=== PATIENT | female | born 1990 | race Caucasian/White ===

== ENCOUNTER 2019-03-12 18:59 | Observation (INO) | payer OTHER, SELFPAY ==
[2019-03-12 19:06] VITALS: BP 139/97; PULSE 103; RESP 22; TEMP 36.3; O2SAT 100
--- NOTE | 2019-03-12 19:23 | ED_ITS ---
HPI - Abdominal Pain General Chief Complaint: Abdominal Pain Stated Complaint: right upper quadrant abdominal pain,thinks [place] Time Seen by Provider: 03/12/19 19:18 Source: patient Mode of arrival: ambulatory Limitations: no limitations History of Present Illness HPI narrative: Patient is an otherwise healthy 29-year-old female here for evaluation of right upper quadrant abdominal pain. Patient states that it started approximately 4-1/2 hours ago after she discussed than eating. She has never had any gallbladder issues in the past however has had pain like this in the past. Has had loose stools today. Has had dark urine today. Has vomited multiple times prior to coming here to the emergency department. Never had a kidney stone before. Related Data Home Medications Medication Instructions Recorded Confirmed No Known Home Medications 03/12/19 03/12/19 Allergies Allergy/AdvReac Type Severity Reaction Status Date / Time Penicillins Allergy Intermediate Hives Verified 03/12/19 19:06 Review of Systems Constitutional Denies fever(s) Cardiovascular Denies chest pain and Denies dyspnea Respiratory Denies dyspnea Gastrointestinal Gastrointestinal: Reports abdominal pain, Reports diarrhea, Reports nausea and Reports vomiting Genitourinary Comments: Dark colored urine Musculoskeletal Denies myalgias and Denies arthralgias Integumentary/Breasts Denies rash Neurologic Denies behavioral changes Psychiatric Denies behavioral changes Hematologic/Lymphatic Denies easy bleeding and Denies easy bruising [facility] Medical History Healthy adult (Acute) Surgical History No pertinent past surgical history (Acute) Social History Smoking Status: Never smoker Social History household members: spouse Smoking Status: Never smoker Exam Initial Vital Signs Initial Vital Signs: Vital Signs Temperature 97.4 F L 03/12/19 19:06 Pulse Rate 103 H 03/12/19 19:06 Respiratory Rate 22 03/12/19 19:06 Blood Pressure 139/97 H 03/12/19 19:06 Pulse Oximetry 100 03/12/19 19:06 Const General: cooperative, healthy appearing, No comfortable (Uncomfortable) and well developed Orientation: alert and awake HENMT Head: normal to inspection and normocephalic Resp Effort & Inspection: normal respiratory effort Auscultation: clear to auscultation bilaterally Cardio Rate: tachycardic Rhythm: regular rhythm GI Inspection: non-distended Palpation: soft, No firm and tender (Right upper quadrant with positive Kilpatrick sign) Back/Spine/Pelvis Back: CVA tenderness right Skin Lesions: no lesions Rashes: no rashes Neuro General: alert, awake and oriented x3 Cognition: normal cognition Speech: speech normal Extrem General: normal to inspection and capillary refill normal Psych Appearance: grossly normal and well kempt Course Orders Ordered: ED Orders 03/12/19 19:28 US abdomen limited Stat 03/12/19 19:34 Complete Blood Count AUTO DIFF Stat Comprehensive Metabolic Panel Stat Lipase Stat Test Serum,Qual Stat 03/12/19 22:01 Consult to General Surgery Routine Sodium Chloride (Normal Saline 0.9%) 1,000 mls @ 125 mls/hr IV CONT MISTY Last Admin: 03/12/19 22:51 Dose: 125 mls/hr Morphine Sulfate (Morphine) 2 mg IV Q4HR PRN PRN Reason: Pain, Mild (1-3) Ondansetron HCl (Zofran) 4 mg IV Q4HR PRN PRN Reason: Nausea And Vomiting Discontinued Medications Ceftriaxone Sodium/Dextrose (Rocephin) 1 gm in 50 mls @ 100 mls/hr IV NOW ONE Stop: 03/12/19 22:29 Last Infusion: 03/12/19 23:08 Dose: 0 mls/hr Infusion: 03/12/19 22:31 Dose: 100 mls/hr Admin: 03/12/19 22:22 Dose: 100 mls/hr Morphine Sulfate (Morphine) 4 mg IV NOW ONE Stop: 03/12/19 19:28 Last Admin: 03/12/19 19:38 Dose: 4 mg Ondansetron HCl (Zofran) 4 mg IV NOW ONE Stop: 03/12/19 19:28 Last Admin: 03/12/19 19:39 Dose: 4 mg Vital Signs - 8 hr 03/12/19 19:06 03/12/19 20:20 03/12/19 21:00 Temperature 97.4 F L Pulse Rate 103 H 94 H 82 Respiratory Rate 22 17 Blood Pressure 139/97 H Blood Pressure [Left Arm] 118/70 96/54 L Pulse Oximetry 100 98 96 03/12/19 22:30 Temperature 98.4 F Pulse Rate 95 H Respiratory Rate 16 Blood Pressure 114/75 Blood Pressure [Left Arm] Pulse Oximetry 96 MDM - Abdominal Pain Lab Data Attestation: I reviewed the patient's lab results. Result diagrams: 03/12/19 19:34 03/12/19 19:34 Lab Results 03/12/19 03/12/19 03/12/19 Range/Units 19:34 19:34 19:34 WBC 9.9 (4.5-11.0) X10^3/uL RBC 5.25 H (4.0-5.2) X10^6/uL Hgb 14.8 (12.0-16.0) g/dL Hct 44.2 (36-46) % MCV 84.3 (80-100) fL MCH 28.2 (26-34) PG MCHC 33.5 (30-36) % RDW 13.4 (11.6-14.8) % Plt Count 260 (150-400) X10^3/uL Neut % (Auto) 71.4 (50-75) % Lymph % (Auto) 18.3 L (25-40) % [place] % (Auto) 8.5 (3-14) % Eos % (Auto) 1.4 L (2-4) % Baso % (Auto) 0.4 (0-2) % Neut # (Auto) 7100 H (4063-1072) /uL Lymph # (Auto) 1800 (4012-5165) /uL [place] # (Auto) 800 (0-900) /uL Eos # (Auto) 100 (0-450) /uL Baso # (Auto) 0 (0-100) /uL Sodium 140 (137-145) mmol/L Potassium 3.8 (3.4-5.1) mmol/L Chloride 101 (98-107) mmol/L Carbon Dioxide 28 (22-32) mmol/L BUN 13 (7-17) mg/dL Creatinine 0.60 (0.52-1.04) mg/dL Estimated GFR > 60.0 (>60) mL/min BUN/Creatinine Ratio 21.7 (6-22) Glucose 94 (70-100) mg/dL Calcium 9.9 (8.4-10.2) mg/dL Total Bilirubin 0.8 (0.2-1.3) mg/dL AST 55 H (14-36) IU/L ALT 68 H (9-52) IU/L Alkaline Phosphatase 81 (38-126) U/L Total Protein 8.1 (6.3-8.2) g/dL Albumin 4.8 (3.5-5.0) g/dL Globulin 3.3 (1.7-4.1) g/dL Albumin/Globulin Ratio 1.5 (1.0-2.8) Lipase 133 (23-300) U/L Serum , Qual Negative (Negative) Imaging Data US - abdomen: Radiologist's impression: [address] [address] Ultrasound Report Signed Patient: Dolly Núñez JMR#: [id number] : 1990Acct:[id number] Age/Sex: 29 / FDate of Service: 03/12/19 Loc: ED Accession Number: [id number] Procedure: US abdomen limited Ordering Provider: Jeremiah Abebe D.O. PROCEDURE: US ABDOMEN LIMITED INDICATIONS: RUQ PAIN CONCERN FOR GB PATHOLOGY TECHNIQUE: Real-time focused scanning was performed of the abdomen, with image documentation. COMPARISON: None. FINDINGS: Liver is normal in size and echotexture. No discrete hepatic lesion. Echogenic stone is seen in dependent portion of gallbladder lumen. No gallbladder wall thickening or pericholecystic fluid. Sonographic Kilpatrick's sign was noted during the study. Mild prominence of common hepatic duct and common bile that is seen measures up to 9.1 mm in diameter. The visualized portion of pancreas shows no gross abnormality. IMPRESSION: Findings concerning for acute cholecystitis and cholelithiasis. Mild prominence of common bile duct. Choledocholithiasis cannot be excluded. Dictated by: Rohan Clark M.D. on 03/12/2019 at 21:23 Approved by: Rohan Clark M.D. on 03/12/2019 at 21:25 MDM Narrative Medical decision making narrative: Patient feels much better after the pain medication however is still having discomfort. Ultrasound is concerning for cholelithiasis/cholecystitis. The patient was given Rocephin secondary to her penicillin allergy. Discussed the case with Dr. rehman with General surgery. Will admit for further evaluation and treatment discuss the admission with the patient and her who is at bedside. They both expressed understanding and agreement. Discharge Plan Departure Patient Disposition: Admitted as Observation Clinical Impression: Cholecystitis Discharge Date/Time: 03/12/19 22:32 Interventions: ED Discharge Assessment Last Done: 03/12/19 22:18 Admit Date/Time: 03/12/19 22:17 Admit Provider: Roxanne Rehman
--- NOTE | 2019-03-12 19:28 | DI.US.S_ITS ---
PROCEDURE: US ABDOMEN LIMITED INDICATIONS: RUQ PAIN CONCERN FOR GB PATHOLOGY TECHNIQUE: Real-time focused scanning was performed of the abdomen, with image documentation. COMPARISON: None. FINDINGS: Liver is normal in size and echotexture. No discrete hepatic lesion. Echogenic stone is seen in dependent portion of gallbladder lumen. No gallbladder wall thickening or pericholecystic fluid. Sonographic Kilpatrick's sign was noted during the study. Mild prominence of common hepatic duct and common bile that is seen measures up to 9.1 mm in diameter. The visualized portion of pancreas shows no gross abnormality. IMPRESSION: Findings concerning for acute cholecystitis and cholelithiasis. Mild prominence of common bile duct. Choledocholithiasis cannot be excluded. Dictated by: Rohan Clark M.D. on 03/12/2019 at 21:23 Approved by: Rohan Clark M.D. on 03/12/2019 at 21:25
[2019-03-12] MEDS: MORPHINE 4 MG/ML INJ IV (19:38)
[2019-03-12] MEDS: ONDANSETRON 4 MG/2 ML INJ IV (19:39)
[2019-03-12 20:00] LABS: Add Manual Diff / Slide Review NO; Basophils Absolute Auto 0 /uL (0-100); Basophils Percent Auto 0.4 % (0-2); Eosinophils Absolute Auto 100 /uL (0-450); Eosinophils Percent Auto 1.4 % (2-4); Hematocrit 44.2 % (36-46); Hemoglobin 14.8 g/dL (12.0-16.0); Lymphocytes Absolute Auto 1800 /uL (1100-4500); Lymphocytes Percent Auto 18.3 % (25-40); Mean Corpuscular HGB Conc 33.5 % (30-36); Mean Corpuscular Hemoglobin 28.2 PG (26-34); Mean Corpuscular Volume 84.3 fL (80-100); Monocytes Absolute Auto 800 /uL (0-900); Monocytes Percent Auto 8.5 % (3-14); Neutrophils Absolute Auto 7100 /uL (1500-7000); Neutrophils Percent Auto 71.4 % (50-75); Platelet Count 260 X10^3/uL (150-400); Red Blood Cell Count 5.25 X10^6/uL (4.0-5.2); Red Cell Distribution Width 13.4 % (11.6-14.8); White Blood Cell Count 9.9 X10^3/uL (4.5-11.0)
[2019-03-12 20:11] LABS: Alanine Aminotransferase 68 IU/L (9-52); Albumin 4.8 g/dL (3.5-5.0); Albumin Globulin Ratio 1.5 (1.0-2.8); Alkaline Phosphatase 81 U/L (38-126); Aspartate Aminotransferase 55 IU/L (14-36); BUN Creatinine Ratio 21.7 (6-22); Bilirubin Total 0.8 mg/dL (0.2-1.3); Blood Urea Nitrogen 13 mg/dL (7-17); Calcium 9.9 mg/dL (8.4-10.2); Carbon Dioxide 28 mmol/L (22-32); Chloride 101 mmol/L (98-107); Estimated Glomerular Filt Rate > 60.0 mL/min (>60); Globulin 3.3 g/dL (1.7-4.1); Glucose 94 mg/dL (70-100); HEMOLYSIS < 15 (0-50); Lipase 133 U/L (23-300); Potassium 3.8 mmol/L (3.4-5.1); Pregnancy Test Serum,Qual Negative (Negative); Sodium 140 mmol/L (137-145); Total Protein 8.1 g/dL (6.3-8.2)
[2019-03-12 20:20] VITALS: BP 118/70; PULSE 94; RESP 17; O2SAT 98
[2019-03-12 21:00] VITALS: BP 96/54; PULSE 82; O2SAT 96
[2019-03-12] MEDS: CEFTRIAXONE 1 GM/50 ML FROZ.PIGGY IV (22:22)
[2019-03-12 22:30] VITALS: BP 114/75; PULSE 95; RESP 16; TEMP 36.9; O2SAT 96
[2019-03-12 22:38] VITALS: BMI 29.8
--- NOTE | 2019-03-12 22:45 | PC.NURSE ---
Mary Carmen shift admit note: 2245: Admit to AC from ER, awake, alert, and oriented. NPO. NO nausea or vomiting. Initiated IVf as ordered. Oriented to room, environment, and plan of care. Call light within reach. VSS and afebrile.
[2019-03-12] MEDS: SODIUM CHLORIDE 0.9% 1,000 ML 125 ML IV (22:51)
[2019-03-13] VITALS (19 sets, daily range): BP systolic 105–129; BP diastolic 53–83; PULSE 71–116; RESP 12–18; TEMP 36.7–37.6; O2SAT 93–99; BMI 29.8
--- NOTE | 2019-03-13 | DI.RAD.S_ITS ---
PROCEDURE: XR CHOLANGIOGRAM OPERATIVE INDICATIONS: OP JEAN COMPARISON: None. FINDINGS: Biliary ducts: The surgeon injected contrast into the biliary ducts after cannulation of the cystic duct stump. Visualized intra- and extrahepatic bile ducts are normal in caliber, without strictures. No intraluminal filling defects to suggest retained ductal stones or sludge. No evidence for iatrogenic ductal injury. Duodenum: Contrast flows promptly through the sphincter of Oddi into the duodenum, which appears normal in caliber. IMPRESSION: Normal intraoperative cholangiogram. Dictated by: Rachel David MD, PhD on 03/13/2019 at 17:55 Approved by: Rachel David MD, PhD on 03/13/2019 at 17:56
--- NOTE | 2019-03-13 | PATH_ITS ---
[facility] Accession Number: [id number] . 01 Material submitted: . gallbladder - GALLBLADDER . 02 Diagnosis: Gallbladder: Cholelithiasis with associated chronic cholecystitis. Negative for atypia and malignancy. [facility]/03/16/2019 . 02 Electronically signed: . Timo Love MD, Pathologist NPI- [id number] . 01 Gross description: . Received in formalin, labeled gallbladder, is an opened gallbladder (length-6.3 cm, diameter-2.3 cm) with green smooth shiny mucosa and a patent cystic duct. No lymph nodes are identified. The lumen contains green mucoid bile and multiple bright yellow gritty friable calculi (0.7 x 0.7 x 0.3 cm in aggregate). The mucosa is dark green, smooth and flat. The all is up to 0.1 cm thick. No nodules, masses or lesions are identified. Section code: (A1) cystic duct resection margin and two serial sections from the body; (A2) two longitudinal sections from the fundus. ([id number]) /MRV . 02 Pathologist provided ICD-10: K80.64 . 02 CPT . 041732 Performed at: 01 [facility] [address], [place], [place] [id number] MD Kuldip Beasley MD Phone: [phone] Performed at: 02 [facility] [address] [place], [place] [id number] MD Kisha Velasquez MD Phone: [phone]
--- NOTE | 2019-03-13 03:02 | PC.NURSE ---
Buttonhole Marker Note: 0045: Awake, resting in bed. Vital signs stable. Pt denies pain at this time, except for a spot of minor soreness. She understands that she is not to eat or drink anything in preparation for surgery in the morning. IV in place in rt hand with NS infusing at 125cc/hr.
[2019-03-13] MEDS: SODIUM CHLORIDE 0.9% 1,000 ML 125 ML IV (07:33)
--- NOTE | 2019-03-13 10:09 | PC.NURSE ---
Addendum entered by Yuki Stauffer R.N. 03/13/19 13:30: Pt to OR via bed at 1320, pt's and youngest daughter at bedside. Original Note: Day Shift- Pt states / aching and tenderness to RUQ abd. No need for prn's at this time, will monitor. Pt NPO since 1500 03/12. Mouth swabs given for comfort. IVF infusing well to right hand PIV. Pt states is anxious regarding pending surgery. comfort provided, her is at the bedside as well. Pt given handout on Cholecystectomy from [employer] host patient education reference for pt to read. Pt states this would be helpful.
--- NOTE | 2019-03-13 11:44 | P.HP_ITS ---
History of Present Illness Date Patient Seen: 03/13/19 Time Patient Seen: 11:41 Chief complaint: right upper quadrant abdominal pain,thinks [place] Narrative: 29yo F admitted overnight with findings of cholecystitis and possible choledocolithiasis. She had sudden severe RUQ pain after eating yesterday and this progressed to vomiting. It worsened rather than resolving so she came in for evaluation. Has had a few similar but milder episodes of pain she dismissed and did not investigate. Currently fairly comfortable but anxious about surgery. Patient History Medical History Healthy adult (Acute) Surgical History No pertinent past surgical history (Acute) Social History household members: spouse Smoking Status: Never smoker Family & Social History Social History: household members spouse Prior Living Arrangements RV Safety & Behavioral: Feels Safe in Current Yes Environment Been Physically Hurt or No Threatened By a Person Suicidal Ideation Description None Suicide Plan Description No Plan Tobacco & Substance use: Smoking Status Never smoker alcohol intake frequency a few times a month Substance Use Type does not use Meds Home Medications Medication Instructions Recorded Confirmed Type No Known Home Medications 03/12/19 03/12/19 History Allergies Allergy/AdvReac Type Severity Reaction Status Date / Time Penicillins Allergy Intermediate Hives Verified 03/12/19 19:06 Review of Systems Constitutional Constitutional: Reports as per HPI Exam Vital Signs (past 8 hours): - 03/13/19 05:05 03/13/19 09:05 Temperature 98.4 F 98.0 F Pulse Rate 91 H 91 H Respiratory Rate 18 18 Blood Pressure 126/69 112/72 Pulse Oximetry 98 98 Oxygen Delivery Method Room Air Oxygen Flow Rate 0 Narrative Exam Narrative: AAO, NAD, overweight female EOMI, MMM, no scleral icterus unlabored RA soft, nd MAEW visible skin dry and intact Objective Imaging US - abdomen: Radiologist's impression: IMPRESSION: Findings concerning for acute cholecystitis and cholelithiasis. Mild prominence of common bile duct. Choledocholithiasis cannot be excluded. Labs Result Diagrams: 03/12/19 19:34 03/12/19 19:34 Labs: Laboratory Results - last 24 hr 03/12/19 03/12/19 03/12/19 19:34 19:34 19:34 WBC 9.9 RBC 5.25 H Hgb 14.8 Hct 44.2 MCV 84.3 MCH 28.2 MCHC 33.5 RDW 13.4 Plt Count 260 Neut % (Auto) 71.4 Lymph % (Auto) 18.3 L [place] % (Auto) 8.5 Eos % (Auto) 1.4 L Baso % (Auto) 0.4 Neut # (Auto) 7100 H Lymph # (Auto) 1800 [place] # (Auto) 800 Eos # (Auto) 100 Baso # (Auto) 0 Sodium 140 Potassium 3.8 Chloride 101 Carbon Dioxide 28 BUN 13 Creatinine 0.60 Estimated GFR > 60.0 BUN/Creatinine Ratio 21.7 Glucose 94 Calcium 9.9 Total Bilirubin 0.8 AST 55 H ALT 68 H Alkaline Phosphatase 81 Total Protein 8.1 Albumin 4.8 Globulin 3.3 Albumin/Globulin Ratio 1.5 Lipase 133 Serum , Qual Negative Assessment & Plan Assessment & Plan narrative: - cholecystitis with possible choledocolithiasis -->plan for lap ralph with IOC later today when OR available - IV abx - NPO, MIVFs Quality VTE Deep Vein Thrombosis/Pulmonary Embolism Present on Admission: No
--- NOTE | 2019-03-13 12:42 | CM.DANOTE ---
Addendum entered by Aleisha Alexandre LPN 03/14/19 13:33: Dr. Weldon did see pt today and ok'd her for home and clinic followup Original Note: Discharge Planning/Care Management DCP: assessment: Case received, EMR reviewed. Pt is a 29 year old female who admitted late last night to care of General Surgeon: Dr. Sonal Weldon. Pt will be taken to OR today for a lap ralph once an OR bed is open. Her is at bedside and ROBERT Mirza is assisting to prepare pt for the transition to surgery. Payer: Sunny Saavedra PCP: [facility]. P: check in tomorrow and follow prn for any d/c needs that may arise. Advanced directive, confirm from FAMILY Start: 03/12/19 22:44 Freq: Q24H Status: Active Protocol: Document 03/12/19 22:50 EM (Rec: 03/12/19 22:51 EM [id number]) Advance Directive, confirm on record Time 22:50 Person contacted [place] Copy received No CM Discharge Assessment Start: 03/13/19 12:40 Freq: Status: Active Protocol: Document 03/13/19 12:41 ITV (Rec: 03/13/19 12:42 ITV [id number]) Discharge Planning Assessment Advance Directives? No History Provided By Medical Record Prior Living Arrangements RV Household Members spouse Is patient alert and oriented? Yes Review Status In Process Next Review Type Continued Stay Review
--- NOTE | 2019-03-13 14:18 | PM.PREOP ---
Pre-operative Note Interval Note History & Physical reviewed/Exam performed by Physician: Yes Changes to H&P: No H&P completed within 30 days and has changed as indicated here:: I have seen the patient examined and talk to her and discussed the risks of bleeding, infection, hernia, bile leakage, injury to internal organs or ducts. She appears to understand and wishes to proceed. Dr. Weldno had already discussed with her the possibility of me doing her operation and she was agreeable.
[2019-03-13] MEDS: LACTATED RINGERS 1,000 ML 42 ML IV ×2 (14:19→16:48)
[2019-03-13] MEDS: CEFAZOLIN 2 GM/100 ML FROZ.PIGGY IV (15:21)
--- NOTE | 2019-03-13 15:38 | SUR.OPER ---
Supine on padded OR bed, head on pillow, arm padded and tucked at side, legs uncrossed, safety belt at thigh, tape over blanket over lower legs .
[2019-03-13] MEDS: BUPIVACAINE 0.5% (PF) VIAL 30 ML INJ (15:48)
[2019-03-13] MEDS: IOPAMIDOL 50 ML VIAL INJ (15:50)
[2019-03-13] MEDS: ONDANSETRON 4 MG/2 ML INJ IV (17:07)
--- NOTE | 2019-03-13 17:07 | P.OP_ITS ---
Operative Date/Time/Diagnoses Date of procedure: 03/13/19 Time of procedure: 17:03 Pre-op diagnosis: Cholelithiasis, cholecystitis chronic, possible choledocholithiasis Post-op diagnosis: other (Cholelithiasis, cholecystitis chronic. No evidence of choledocholithiasis.) Procedure & Clinicians Procedure: Laparoscopic cholecystectomy with intraoperative cholangiogram Same procedure as scheduled: Yes Indications: Symptomatic gallbladder disease Surgeon: Juwan Garvey Yes if Unassisted: Yes Anesthesia Type: General Operative Notes Findings: Mildly inflamed gallbladder wall. Dilated common bile duct and hepatic duct with narrow tapering at the distal end but no filling defects appreciated. Free flow into the duodenum. Closure Type: primary Specimen(s): other (Gallbladder) Estimated Blood Loss (mL): 15 Blood products transfused: none Procedure in detail: Patient is placed supine on the operating room table underwent general endotracheal anesthesia. She was prepped draped usual fashion. Incision was made in the lower edge of the umbilicus and carried down under direct vision in the peritoneal cavity. Stay sutures of 0 Vicryl were placed in the fascia. An Andrea cannula was inserted. The abdomen is insufflated. Three additional ports were placed under the right costal margin. There were extensive adhesions of the right lobe of the liver to the anterior abdominal wall. These were taken down sharply and with cautery. once the liver was free and mobile The gallbladder was grasped and elevated. dissection was begun at the end of the gallbladder. A ductal structure singular nature going directly the gallbladder was from surrounding structures. the common bowel duct was clearly visible and seemed dilated. I placed a clip at the junction of the gallbladder to the cystic duct and made a small intentional jonah in the cystic duct. in so doing a small vessel on the surface began to bleed and was controlled with a clip. Cholangiocatheter was placed in the cystic duct. a cholangiogram was performed that showed a dilated hepatic and common bile duct system but none long narrow tapering and the and and free flow into the duodenum. I could see no filling defects. The cholangiocatheter was removed and 2 clips were placed on the cystic duct and it was divided leaving these 2 clips in the patient. the cystic artery was encountered and was from surrounding structures. Three clips were placed on it and it was divided leaving 2 in the patient. one other area had what appeared to possibly be a vascular structure and it was handled in a similar fashion. the gallbladder is then dissected from its bed in the liver using cautery. It was ultimately detached. There was a small amount of spillage of bile. The gallbladder was placed in a bag and removed without difficulty through the umb ilical port. the right upper quadrant was irrigated and suctioned free of fluid. At completion meticulous hemostasis had been achieved. there was no bleeding. the ports were all removed. the stay sutures at the umbilicus were tied and an additional 2 0 PDS was placed in the fascia between the other stitches. after irrigating the wounds 4 0 Vicryl subcuticular stitches were used to close the skin. Steri-Strips were applied after Mastisol. Band-Aids were applied over this and the patient was awakened, extubated and taken recovery area in good condition. Complications: none Condition: stable Disposition: PACU
[2019-03-13] MEDS: HYDROMORPHONE 2 MG INJ 1 MG IV ×2 (17:10→17:24)
--- NOTE | 2019-03-13 18:20 | SUR.PHASEI ---
Pt transferred to room 204 via bed. Last vital signs stable with pain controlled/pt verbalizing that pain is at a tolerable level; see flowsheet documentation for details. Report given to ROBERT Doll prior to transfer. Upon arrival to room 204 Sharmila was unable to come to bedside so ROBERT Collins received report of pt's status and is to assume care of pt at this time.
[2019-03-13] MEDS: LACTATED RINGERS 1,000 ML 125 ML IV (19:52)
[2019-03-13] MEDS: OXYCODONE/ACETAMINOPHEN 5/325 TABLET 2 TAB PO (19:53)
[2019-03-13] MEDS: SODIUM CHLORIDE 0.9% FLUSH 10 ML IV (20:18)
[2019-03-13] MEDS: ENOXAPARIN 40 MG/0.4 ML SYRINGE SUBCUT (22:27)
[2019-03-13] MEDS: GABAPENTIN 300 MG CAPSULE PO (22:27)
[2019-03-14] MEDS: OXYCODONE/ACETAMINOPHEN 5/325 TABLET 2 TAB PO ×2 (03:43→08:58)
--- NOTE | 2019-03-14 05:32 | PC.NURSE ---
Pt doing well. Complained of RUQ abdominal pressure, relieved with 1 percocet and a hot pack. No nausea, tolerating food. Abdominal incision are clean dry and intact, steri strips covered with large bandaids. Passing flatus, No BM yet.
[2019-03-14 06:00] VITALS: BP 109/52; PULSE 102; RESP 18; TEMP 36.9; O2SAT 98
[2019-03-14 06:47] LABS: Add Manual Diff / Slide Review NO; Basophils Absolute Auto 0 /uL (0-100); Basophils Percent Auto 0.4 % (0-2); Eosinophils Absolute Auto 0 /uL (0-450); Eosinophils Percent Auto 0.1 % (2-4); Hematocrit 38.6 % (36-46); Hemoglobin 13.1 g/dL (12.0-16.0); Lymphocytes Absolute Auto 1300 /uL (1100-4500); Lymphocytes Percent Auto 15.4 % (25-40); Mean Corpuscular Hemoglobin 28.5 PG (26-34); Mean Corpuscular Volume 83.9 fL (80-100); Monocytes Absolute Auto 600 /uL (0-900); Monocytes Percent Auto 7.5 % (3-14); Neutrophils Absolute Auto 6500 /uL (1500-7000); Neutrophils Percent Auto 76.6 % (50-75); Platelet Count 260 X10^3/uL (150-400); Red Cell Distribution Width 13.4 % (11.6-14.8); White Blood Cell Count 8.5 X10^3/uL (4.5-11.0)
[2019-03-14 06:57] LABS: Alanine Aminotransferase 78 IU/L (9-52); Albumin 4.3 g/dL (3.5-5.0); Albumin Globulin Ratio 1.5 (1.0-2.8); Alkaline Phosphatase 67 U/L (38-126); Aspartate Aminotransferase 46 IU/L (14-36); BUN Creatinine Ratio 13.3 (6-22); Bilirubin Total 0.6 mg/dL (0.2-1.3); Blood Urea Nitrogen 8 mg/dL (7-17); Calcium 9.1 mg/dL (8.4-10.2); Carbon Dioxide 24 mmol/L (22-32); Chloride 104 mmol/L (98-107); Estimated Glomerular Filt Rate > 60.0 mL/min (>60); Globulin 2.8 g/dL (1.7-4.1); Glucose 97 mg/dL (70-100); HEMOLYSIS < 15 (0-50); Potassium 3.9 mmol/L (3.4-5.1); Sodium 139 mmol/L (137-145); Total Protein 7.1 g/dL (6.3-8.2)
[2019-03-14 08:13] VITALS: BP 124/71; PULSE 93; RESP 18; TEMP 36.9; O2SAT 100
[2019-03-14] MEDS: GABAPENTIN 300 MG CAPSULE PO (08:54)
--- NOTE | 2019-03-14 12:09 | P.DS_ITS ---
History of Present Illness Chief complaint: right upper quadrant abdominal pain,thinks [place] Narrative: 29yo F admitted overnight with findings of cholecystitis and possible choledocolithiasis. She had sudden severe RUQ pain after eating yesterday and this progressed to vomiting. It worsened rather than resolving so she came in for evaluation. Has had a few similar but milder episodes of pain she dismissed and did not investigate. Currently fairly comfortable but anxious about surgery. Discharge Providers Date of admission: 03/12/19 22:17 Discharge Date: 03/14/19 Consults: 03/12/19 22:01 Consult to General Surgery Routine Comment: Consulting Provider: Roxanne Weldon Reason for consultation: admission Has provider been notified: Yes 03/13/19 18:50 Consult to Discharge Planning Routine Comment: Discharge provider: Roxanne Weldon MD Summary Discharge Diagnosis: Cholecystitis Hospital Course: 29yo admitted with worsening abd pain and findings of acute cholecystitis and possible choledocolithiasis. Underwent lap ralph with IOC which showed no residual stones in the CBD. She discharged the following day cande PO, pain controlled, and all questions answered. Status at Discharge Cognitive/behavioral status at discharge: at baseline, oriented Functional status at discharge: independent ambulation Overall status at discharge: patient is progressing back to baseline Time Spent with Patient Greater than 30 minutes Exam Vital Signs (past 8 hours): - 03/14/19 06:00 03/14/19 08:13 Temperature 98.4 F 98.5 F Pulse Rate 102 H 93 H Respiratory Rate 18 18 Blood Pressure 109/52 L 124/71 Pulse Oximetry 98 100 Oxygen Delivery Method Room Air Oxygen Flow Rate 0 Objective Labs Result Diagrams: 03/14/19 06:36 03/14/19 06:36 Labs: Laboratory Results - last 24 hr 03/14/19 03/14/19 06:36 06:36 WBC 8.5 RBC 4.60 Hgb 13.1 Hct 38.6 MCV 83.9 MCH 28.5 MCHC 34.0 RDW 13.4 Plt Count 260 Neut % (Auto) 76.6 H Lymph % (Auto) 15.4 L [place] % (Auto) 7.5 Eos % (Auto) 0.1 L Baso % (Auto) 0.4 Neut # (Auto) 6500 Lymph # (Auto) 1300 [place] # (Auto) 600 Eos # (Auto) 0 Baso # (Auto) 0 Sodium 139 Potassium 3.9 Chloride 104 Carbon Dioxide 24 BUN 8 Creatinine 0.60 Estimated GFR > 60.0 BUN/Creatinine Ratio 13.3 Glucose 97 Calcium 9.1 Total Bilirubin 0.6 AST 46 H ALT 78 H Alkaline Phosphatase 67 Total Protein 7.1 Albumin 4.3 Globulin 2.8 Albumin/Globulin Ratio 1.5 Discharge Plan Discharge Plan Patient Disposition: Home Discharge Med Rec/Prescriptions Prescriptions: New oxycodone-acetaminophen 5-325 mg Tablet 2 tab PO Q6HR PRN (Reason: Pain, Severe (7-10)) Qty: 40 RF: 0 ibuprofen 800 mg tablet 800 mg PO TID Qty: 30 RF: 1 docusate sodium [Colace] 100 mg capsule 100 mg PO BID Qty: 60 RF: 1 Follow up/Referrals: Roxanne Weldon MD [Physician] - (Call office Saturday morning to make a follow up appointment for 10-14 days from surgery date.) Provider Discharge Instructions Diet: Diet as Tolerated Activity: no lifting >20 lbs for 4 weeks Skin/Wound/Dressing Care Skin care: ok to shower Visit Report/Discharge Packet Instructions: Constipation, Fat-Restricted Diet, Cholecystectomy -- Laparoscopic Surgery, DI for Postoperative Pain Stand Alone Forms: Surgery Discharge Discharge Data Attending Provider: Roxanne Weldon Admit Date/Time: 03/12/19 22:17 Quality VTE Deep Vein Thrombosis/Pulmonary Embolism Present on Admission: No
--- NOTE | 2019-03-14 14:40 | PC.NURSE ---
Day Shift- Pt given 2 tabs Percocet at 0855 with good effect. For RUQ abd pressure, tenderness. Abd lap sites X4 band-aids CDI, BS X4, tympanic on right side abd. Passing flatus, No BM. Explained use of stool softeners and avoiding constipation. Discharge summary packet reviewed with pt and her at bedside. All questions answered. Reviewed at 1215. No further voiced concerns. Pt aware to call Dr. Weldon office Saturday morning to make a follow up appointment as this is currently the weekend and on-call service. Pt left unit via wheelchair at 1233 in no distress with [employer] NURSE, , 2 children and all Belongings.
== END 2019-03-14 12:33 | disposition home or self-care (01) ==
LOC: ED 22:01 → AC 03-13 07:01
PROVIDERS: Specialist; Admitting Provider Surgery; Emergency Provider Emergency Medicine; Visit Provider Surgery
PROC: 0FT44ZZ Resection of Gallbladder, Percutaneous Endoscopic Approach (ICD-10-PCS; CPT 47562; principal; 2019-03-13 13:45)
DX: K80.10 Calculus of gallbladder with chronic cholecystitis without obstruction (principal); R10.11 Right upper quadrant pain
CPT/HCPCS: 47563; 36415; 36591; 74300; 76705; 80053; 83690; 84703; 85025; 88305; 96361; 96365; 96372; 96375; 99220; 99283; 99284; G0378; J0690; J1100; J1170; J1650; J2250; J2270; J2405; J2704; J3010

== ENCOUNTER → 2019-12-11 09:07 | Outpatient (CLI) | payer OTHER, SELFPAY ==
--- NOTE | 2019-12-11 | DI.MRI.S_ITS ---
PROCEDURE: MR LOWER LEG LT WO/W CON INDICATIONS: Pain in left lower leg TECHNIQUE: Noncontrast coronal T1 spin echo and STIR, sagittal T1 spin echo with fat saturation and STIR, axial T1 spin echo and T2 fast spin echo with fat saturation. After the administration of contrast, axial/sagittal/coronal T1 spin echo with fat saturation through the left lower leg. COMPARISON: None. FINDINGS: Image quality: Excellent. Bones: The visualized bone marrow demonstrates normal signal on all sequences. The overlying cortex appears intact. No abnormal intraosseous enhancement. Soft tissues: No soft tissue masses are visualized. The scanned muscles demonstrate normal overall bulk and internal signal. Subcutaneous tissues appear normal as well. No abnormal soft tissue enhancement. IMPRESSION: Normal exam. No findings to explain left lower leg pain. Dictated by: Ronna Houston M.D. on 12/11/2019 at 10:27 Approved by: Ronna Houston M.D. on 12/11/2019 at 18:31
== END ==
PROVIDERS: PCP Family Medicine; Referring Provider Family Medicine; Visit Provider Family Medicine
DX: M79.662 Pain in left lower leg (principal)
CPT/HCPCS: 73720; A9579